=== PATIENT | male | born 1975 | race Caucasian/White ===

== ENCOUNTER 2018-10-26 06:09 | Day surgery (SDC) | payer OTHER ==
--- NOTE | 2018-10-25 17:38 | Pre-Procedure Note/Attestation ---
Pre-Procedure Note/Attestation Complete Prior to Procedure Planned Procedure: not applicable Procedure Narrative: 1. Septoplasty 2. SMR inf right turbinate 3. SMR inf left turbinate Indications for Procedure Pre-Operative Diagnosis: 1. Nasal septal deviation 2. Hypertrophied bilateral inferior turbinates Attestation I attest that I discussed the nature of the procedure; its benefits; risks and complications; and alternatives (and the risks and benefits of such alternatives ), prior to the procedure, with the patient (or the patient's legal automotive leasing sales representative). I attest that, if there was a reasonable possibility of needing a blood transfusion, the patient (or the patient's legal automotive leasing sales representative) was given the [facility] standardized written summary, pursuant to the Peterson Heather Blood Safety Act ([place] Health and Safety Code # 1645, as amended). I attest that I re-evaluated the patient just prior to the surgery and that there has been no change in the patient's H&P,done by Dr. Pardo-on staff at [facility]. Chris Tan MD Oct 25, 2018 17:38
--- NOTE | 2018-10-25 17:39 | Brief Operative Note ---
Immediate Post Operative Note Operative Note Chief Complaint: nasal airway obstruction Pre-op Diagnosis: 1. Nasal septal deviation 2. Hypertrophied bilateral inferior turbinates Procedure: 1. Septoplasty 2. SMR inf right turbinate 3. SMR inf left turbinate Post-op Diagnosis: same as pre-op Surgeon: Chris Tan Circular Knife Machine Cutter: none Additional Surgeons: none Anesthesiologist: Maribel Anesthesia: general Specimen: none Complications: none Condition: stable Fluids: D5LR Estimated Blood Loss: volume - 10 cc Drains: none Packing: Nasal gel Implant(s) used?: No Chris Tan MD Oct 25, 2018 17:39
--- NOTE | 2018-10-25 17:41 | Discharge Instructions ---
Discharge Instructions Discharge Instructions Follow up with: next week-pt has printed instructions which were reviewed with him. Diet: regular Resume Normal Activity?: No Activity: light activity, ambulate Pneumonia Vaccine: pt refused vaccine Influenza Vaccine (Feb to Jul): pt refused vaccine Return to Work/School on: Nov 08, 2018 Special Instructions ice to face s 48 hours For Surgical Patients Dressing Care: may change May shower: No For Congestive Heart Failure Reminder Report to your physician any weight gain of 5 pounds or more in one week. Chris Tan MD Oct 25, 2018 17:41
[~2018-10-26] VITALS: Ht 170.2 cm; Wt 77.6 kg
[2018-10-26] VITALS (10 sets, daily range): BP systolic 105–125; BP diastolic 55–75
[~2018-10-26 06:09] MED LIST: AMOXICILLIN500 MG ORAL; NORCO 5-325 TA1 EACH ORAL
[2018-10-26] MEDS ORDERED: Zemuron 50mg/5ml Inj IV ONE (06:58)
[2018-10-26] MEDS ORDERED: Cocaine HCl 4% 4ml vial TOPIC ONE (07:00)
[2018-10-26] MEDS ORDERED: ceFAZolin sod 1 GM in D5W 55 ML IV ONE (07:00)
[2018-10-26] MEDS ORDERED: Lidocaine 1% 10mg/ml/Epi 0.005mg/ml 30ml vial INJ ONE (07:00)
[2018-10-26] MEDS ORDERED: Bupivacaine w/Epi 0.5% 30ml Vial INJ ONE (07:00)
[2018-10-26] MEDS ORDERED: LR 1000ml 1,000 ML IVLG SCH (07:01)
--- NOTE | 2018-10-26 07:05 | Anethesia Preoperative Eval ---
Anesthesia Pre-op PMH/ROS General Date of Evaluation: Oct 26, 2018 Time of Evaluation: 07:36 Anesthesiologist: Maribel ASA Score: ASA 2 Mallampati Score Class I : Soft palate, uvula, fauces, pillars visible Class II: Soft palate, uvula, fauces visible Class III: Soft palate, base of uvula visible Class IV: Only hard plate visible Mallampati Classification: Class II Surgeon: Dominick Diagnosis: Nasal Deviation Surgical Procedure: Septoplasty, Bilateral Turbinectomy Family History: no anesthesia problems Allergies: Coded Allergies: Molds and Smuts (Verified Allergy, Severe, 10/26/18) THROAT SWELLS UP Muller Pepper (Verified Allergy, Mild, 10/26/18) NAUSEA/VOMITING Medications: see eMAR Patient NPO?: Yes Past Medical History Pulmonary: Reports: MARIA FERNANDA Neurologic/Psychiatric: Reports: depression/anxiety - Anxiety Disorder PSxH Narrative: Appendectomy Anesthesia Pre-op Phys. Exam Physician Exam Constitutional: NAD Neurologic: CN 2-12 intact Cardiovascular: RRR Respiratory: CTA Gastrointestinal: S/NT/ND Airway Exam Mallampati Score: Class II MO: full ROM: full Teeth: intact Anesthesia Pre-op A/P Risk Assessment & Plan Assessment: ASA 2 Plan: GA, SED GlideScope Go Status Change Before Surgery: No Pre-Antibiotics Dru Gram Ancef IV Given Within 1 Hr of Incision: Yes Time Given: 07:51 Nael López MD Oct 26, 2018 07:05
--- NOTE | 2018-10-26 07:06 | 48 Hour Post Anesthesia Eval ---
Post Anesthesia Evaluation Procedure: Septoplasty, Bilateral Turbinectomy Date of Evaluation: Oct 26, 2018 Time of Evaluation: 11:12 Blood Pressure Systolic: 112 0: 72 Pulse Rate: 62 Respiratory Rate: 18 Temperature (Fahrenheit): 98.4 O2 Sat by Pulse Oximetry: 97 Airway: patent Nausea: No Vomiting: No Pain Intensity: 2 Hydration Status: adequate Cardiopulmonary Status: Stable Mental Status/LOC: patient returned to baseline Follow-up Care/Observations: 0 Post-Anesthesia Complications: 0 Follow-up care needed: ready to discharge Nael López MD Oct 26, 2018 07:06
--- NOTE | 2018-10-26 07:06 | Immediate Post-Op Evaluation ---
Immediate Post-Op Evalulation Immediate Post-Op Evalulation Procedure: Septoplasty, Bilateral Turbinectomy Date of Evaluation: Oct 26, 2018 Time of Evaluation: 08:59 IV Fluids: 600 LR Blood Products: 0 Estimated Blood Loss: 40 Urinary Output: 0 Blood Pressure Systolic: 105 Blood Pressure Diastolic: 56 Pulse Rate: 57 Respiratory Rate: 16 O2 Sat by Pulse Oximetry: 100 Temperature (Fahrenheit): 98.2 Pain Score (1-10): 2 Nausea: No Vomiting: No Complications 0 Patient Status: awake, reacts, patent, none Hydration Status: adequate Dru Gram Ancef IV Given Within 1 Hr of Incision: Yes Time Given: 07:51 Nael López MD Oct 26, 2018 07:06
[2018-10-26] MEDS ORDERED: fentaNYL 100 mcg/2 mL IV ONE (07:08)
[2018-10-26] MEDS ORDERED: Lidocaine 1% MPF 10mg/ml 5ml ONE (07:08)
[2018-10-26] MEDS ORDERED: Propofol 200mg/20ml IV ONE (07:08)
[2018-10-26] MEDS ORDERED: Sodium Chloride 10ml vial INJ ONE (07:08)
[2018-10-26] MEDS ORDERED: Dexamethasone 4mg/ml vial ONE (07:08)
[2018-10-26] MEDS ORDERED: DiphenhydrAMINE 50mg/ml Inj IVP PRN (07:15)
[2018-10-26] MEDS ORDERED: oxyCODONE HCL/Acetaminophen 5/325mg ORAL PRN (07:15)
[2018-10-26] MEDS ORDERED: Ketorolac 30mg Inj IV PRN ×2 (07:15)
[2018-10-26] MEDS ORDERED: fentaNYL 100 mcg/2 mL IV PRN (07:15)
[2018-10-26] MEDS ORDERED: Meperidine 50mg/ml Inj(FOR RIGORS ONLY) IVP PRN (07:15)
[2018-10-26] MEDS ORDERED: Hydromorphone 0.5mg/0.5ml inj IVP PRN (07:15)
[2018-10-26] MEDS ORDERED: LORazepam Inj 2mg/ml 1ml IV PRN (07:15)
[2018-10-26] MEDS ORDERED: Acetaminophen (Non formulary) 100 ML IV ONE (07:15)
[2018-10-26] MEDS ORDERED: Dexamethasone 4mg/ml vial IVP ONE (07:15)
[2018-10-26] MEDS ORDERED: Atropine Sulfate 0.4mg/ml inj IVP PRN (07:15)
[2018-10-26] MEDS ORDERED: Metoclopramide 10mg/2ml Inj IVP PRN ×3 (07:15→12:00)
[2018-10-26] MEDS ORDERED: Labetalol 5mg/ml 20ml vial IV PRN (07:15)
[2018-10-26] MEDS ORDERED: Midazolam 2mg/2ml Inj IVP PRN (07:15)
[2018-10-26] MEDS ORDERED: HYDROcodone/Acetamin 7.5/325 tab ORAL PRN (07:15)
[2018-10-26] MEDS ORDERED: HYDROcodone/Acetamin 5/325 tab ORAL PRN ×3 (07:15→12:00)
[2018-10-26] MEDS ORDERED: Lidocaine 1% Plain 30 ml INJ ONE (07:50)
[2018-10-26] MEDS ORDERED: Glycopyrrolate 0.2mg/ml 1ml Vial ONE (08:14)
[2018-10-26] MEDS ORDERED: Neostigmine 1mg/ml 10ml Inj ONE (08:14)
[2018-10-26] MEDS ORDERED: Flumazenil 0.1mg/ml 5ml Inj IV ONE (08:25)
[2018-10-26] MEDS ORDERED: LR 1000ml ONE (08:59)
[2018-10-26] MEDS ORDERED: NS Irrig 1000ml ONE (08:59)
[2018-10-26] MEDS ORDERED: Sterile Water Irrig 1000ml IRRIG ONE (08:59)
--- NOTE | 2018-10-26 09:11 | General Progress Note ---
Progress Note Progress Note Pt to admited as observation since slow to wake up and history of sleep apnea. If doing well later today, may go home this afternoon instead of tomorrow AM. Chris Tan MD Oct 26, 2018 09:11
--- NOTE | 2018-10-26 11:00 | NUR ---
NURSE NOTES: Received report from Yajaira VALADEZ, pt a/a/o x4 laying in bed with no signs of distress or other issues at this time. surgical dressing dry and intact. Iv on the right PRATER gauge#20 heplock. RN will review orders and will carry them as indicated. call light within reach. bed in lowest position. side rales up x2. I will f/u as needed.
[2018-10-26] MEDS ORDERED: HYDROmorphone 1mg/ml Carpuject SUBQ PRN ×2 (12:00)
--- NOTE | 2018-10-26 16:36 | General Progress Note ---
Progress Note Progress Note I have spoken with anesthesia, nurse at bedside and pt. All state he is stable and OK to go home. He is OK to discharge now-order written. Pt. has appt. for next week in my office and has all his meds. Chris Tan MD Oct 26, 2018 16:36
--- NOTE | 2018-10-26 16:45 | NUR ---
NURSE NOTES: Received order for discharge. belongings and discharge instructions given to patient and pt's mother. IV removed prior to d/c. pt left the floor with no signs of distress or other issues at this time. mother will provide transportation. I will f/u as needed.
--- NOTE | 2018-10-26 17:00 | Operative Note - Dictated ---
DATE OF OPERATION: 10/26/2018 SURGEON: Chris Tan M.D. BRAKE LINING MAKER: None. ANESTHESIOLOGIST: Nael López M.D. ANESTHESIA: Oral endotracheal anesthesia, 4 mL 4% topical cocaine and 10 mL 50:50 mixture of 1% lidocaine with 1:100,000 epinephrine and Sensorcaine 0.5% with 1:200.000 epinephrine. This was injected subcutaneously. PREOPERATIVE DIAGNOSIS: Nasal airway obstruction secondary to septal deviation and hypertrophied right and left inferior turbinates in the patient who has failed nasal steroids and antihistamines. POSTOPERATIVE DIAGNOSIS: Nasal airway obstruction secondary to septal deviation and hypertrophied right and left inferior turbinates in the patient who has failed nasal steroids and antihistamines. FINDINGS: Nasal airway obstruction secondary to septal deviation and hypertrophied right and left inferior turbinates in the patient who has failed nasal steroids and antihistamines. PROCEDURES: 1. Septoplasty. 2. Submucous resection of the right inferior turbinate. 3. Submucous resection of the left inferior turbinate. TECHNIQUE: The patient was prepped and draped in usual manner. Time-out was performed and all agreed as to the equipment and procedures to be done. Initially, an incision was made in the right inferior turbinate with a #15 blade. Two passes with radiofrequency wand, coated with saline gel 10 seconds at a setting of 6. I outfractured with a Boies elevator. The same procedure was followed for the left inferior turbinate. I then turned my attention to the septum. A [place] incision made with a 15 blade and a dental elevator elevating the periosteum and perichondrium on either side. I then cut out the lower 3 mm of the septal cartilage. The [place] flap was then sewn back together with a 4-0 plain suture. Sinus foam gel was placed in either nostril formally known as Stammberger nasal gel. Mustache dressing was placed. Sponge and needle count was correct. ESTIMATED BLOOD LOSS: 10 mL. COUNTS: None. DRAINS: None. The patient was awake and alert and stable in the recovery room sleeping. No signs of sleep apnea although he complains of that. Please note, initially I planned on keeping him in the hospital. He seems to be done very well and does not seem to have any issues in the recovery area and therefore as of now, I plan on discharging him home as an outpatient and see him next week in my office unless there is a change during the next hour in the recovery room. Chris Tan M.D. DR: EDWIN JOB#: [id number] CC:
--- NOTE | 2018-10-26 20:30 | Operative Note - Dictated ---
DATE OF OPERATION: 10/26/2018 SURGEON: Chris Tan M.D. INSOLE RASPER: None. ANESTHESIOLOGIST: Nael López M.D. ANESTHESIA: Oral endotracheal anesthesia, 4 mL 4% topical cocaine and 10 mL 50:50 mixture of 1% lidocaine with 1:100,000 epinephrine and Sensorcaine 0.5% with 1:200.000 epinephrine. This was injected subcutaneously. PREOPERATIVE DIAGNOSIS: Nasal airway obstruction secondary to septal deviation and hypertrophied right and left inferior turbinates in the patient who has failed nasal steroids and antihistamines. POSTOPERATIVE DIAGNOSIS: Nasal airway obstruction secondary to septal deviation and hypertrophied right and left inferior turbinates in the patient who has failed nasal steroids and antihistamines. FINDINGS: Nasal airway obstruction secondary to septal deviation and hypertrophied right and left inferior turbinates in the patient who has failed nasal steroids and antihistamines. PROCEDURES: 1. Septoplasty. 2. Submucous resection of the right inferior turbinate. 3. Submucous resection of the left inferior turbinate. TECHNIQUE: The patient was prepped and draped in usual manner. Time-out was performed and all agreed as to the equipment and procedures to be done. Initially, an incision was made in the right inferior turbinate with a #15 blade. Two passes with radiofrequency wand, coated with saline gel 10 seconds at a setting of 6. I outfractured with a Boies elevator. The same procedure was followed for the left inferior turbinate. I then turned my attention to the septum. A [place] incision made with a 15 blade and a dental elevator elevating the periosteum and perichondrium on either side. I then cut out the lower 3 mm of the septal cartilage. The [place] flap was then sewn back together with a 4-0 plain suture. Sinu-Foam gel was placed in either nostril formally known as Stammberger nasal gel. Mustache dressing was placed. Sponge and needle count was correct. ESTIMATED BLOOD LOSS: 10 mL. COUNTS: None. DRAINS: None. The patient was awake and alert and stable in the recovery room sleeping. No signs of sleep apnea although he complains of that. Please note, initially I planned on keeping him in the hospital. He seems to be done very well and does not seem to have any issues in the recovery area and therefore as of now, I plan on discharging him home as an outpatient and see him next week in my office unless there is a change during the next hour in the recovery room. Chris Tan M.D. DR: EDWIN JOB#: [id number] CC:
== END 2018-10-26 16:45 | disposition home or self-care (01) ==
LOC: SUR 06:09 → 3E 10:28 → OBSVTOIN 16:45 → INTOOBSV 16:45
DX: J34.2 Deviated nasal septum (principal); J34.3 Hypertrophy of nasal turbinates; J34.89 Other specified disorders of nose and nasal sinuses; K21.9 Gastro-esophageal reflux disease without esophagitis; Z90.89 Acquired absence of other organs; Z87.442 Personal history of urinary calculi; F32.9 Major depressive disorder, single episode, unspecified; F41.9 Anxiety disorder, unspecified; Z91.018 Allergy to other foods; Z91.048 Other nonmedicinal substance allergy status; G47.33 Obstructive sleep apnea (adult) (pediatric)
CPT/HCPCS: 30140; 30520; J0690; J1100; J2001; J2250; J2405; J2704; J2710; J3010; 94003; 94150